=== PATIENT | male | born 1945 | race Caucasian/White ===

== ENCOUNTER 2021-08-05 14:24 | Outpatient (CLI) | payer MEDICARE ==
--- NOTE | 2021-08-07 08:21 | XRAY Report ---
PROCEDURE: Chest 2 View X-Ray INDICATIONS: WALKING PNEUMONIA TECHNIQUE: 2 view(s) of the chest. COMPARISON: None. FINDINGS: Surgical changes and devices: None. Lungs and pleura: No pleural effusions or pneumothorax. Increased interstitial markings in the centr al/perihilar lungs. Mediastinum: Mediastinal contours are normal. Heart size is normal. Bones and chest wall: No suspicious bony abnormalities. Soft tissues appear unremarkable. IMPRESSION: Increased interstitial markings in the central/perihilar lungs is consistent with bronch itis. Reviewed by: Chris Soria MD on 08/07/2021 8:20 AM PDT Approved by: Chris Soria MD on 08/07/2021 8:20 AM PDT Station ID: [id number]
== END 2021-08-05 23:59 | disposition home or self-care (01) ==
LOC: DI.N 14:24
PROVIDERS: ATTEND Physician Assistant Medical
DX: J18.9 Pneumonia, unspecified organism (principal); R91.8 Other nonspecific abnormal finding of lung field